=== PATIENT | male | born 1965 | race African-American/Black ===

== ENCOUNTER 2017-02-05 12:20 | Emergency (ER) | payer MEDICAID ==
[~2017-02-05] VITALS: Ht 180.3 cm; Wt 81.6 kg
[2017-02-05 12:29] VITALS: BP 126/84
[2017-02-05] MEDS ORDERED: CYCLOBENZAPRINE10 MG ORAL (12:43)
[2017-02-05] MEDS ORDERED: IBUPROFEN600 MG ORAL (12:43)
--- NOTE | 2017-02-05 12:43 | Emergency Room Report ---
History of Present Illness General Chief Complaint: Back Pain-No Injury Source: Patient Present Illness HPI 51-year-old male presents to the emergency department complaining of 8/10 in severity left-sided low back pain x3 days. Patient states acute onset the day after helping to move bags of powdered concrete. Patient denies previous injury to his back denies nausea, vomiting, fevers, chills denies trauma or fall. Denies recent spinal procedures her history of cancer. Denies numbness tingling or loss of sensation or gross motor movements of the extremities, incontinence of bowel or bladder. Denies CP, Palpitations, LOC, AMS, dizziness, Changes in Vision, Sensation, paresthesias, or a sudden severe headache. Allergies: Coded Allergies: No Known Allergies (Unverified , 02/05/17) Patient History Past Medical History: see triage record Past Surgical History: none Pertinent Family History: none Reviewed Nursing Documentation: PMH: Agreed, PSxH: Agreed Nursing Documentation-PMH Past Medical History: No Stated History Review of Systems All Other Systems: negative except mentioned in HPI Physical Exam Vital Signs Date Time Temp Pulse Resp B/P (MAP) Pulse Ox O2 Delivery O2 Flow Rate FiO2 02/05/17 12:25 97.9 71 20 129/87 99 Room Air Sp02 EP Interpretation: reviewed, normal General Appearance: no apparent distress, alert, GCS 15, non-toxic Head: normocephalic, atraumatic Eyes: bilateral eye normal inspection, bilateral eye PERRL ENT: hearing grossly normal, normal voice Neck: full range of motion, no bony tend, supple/symm/no masses Respiratory: lungs clear, normal breath sounds, speaking full sentences Cardiovascular #1: regular rate, rhythm Rectal: deferred Genitourinary: normal inspection, no CVA tenderness Musculoskeletal: back normal, gait/station normal, normal range of motion, tender - Left lumbar paraspinal ttp, no midline ttp, no swelling, no erythema, no increased temperature to palpation, FROM, Neurologic: alert, oriented x3, responsive, motor strength/tone normal, sensory intact, normal gait, speech normal Psychiatric: judgement/insight normal, memory normal, mood/affect normal Reflexes: 2+ knee (R), 2+ knee (L) Skin: normal color, no rash, warm/dry, well hydrated Medical Decision Making PA Attestation Dr. Roldan is my supervising Physician whom patient management has been discussed with. Diagnostic Impression: Primary Impression: Lumbosacral strain Qualified Codes: S39.012A - Strain of muscle, fascia and tendon of lower back , initial encounter Additional Impression: Acute lumbosacral myofascial strain Qualified Codes: S39.012A - Strain of muscle, fascia and tendon of lower back , initial encounter ER Course 51-year-old male presents to the emergency department complaining of 8/10 in severity left-sided low back pain x3 days. Patient states acute onset the day after helping to move bags of powdered concrete. Patient denies previous injury to his back denies nausea, vomiting, fevers, chills denies trauma or fall. Denies recent spinal procedures her history of cancer. Denies numbness tingling or loss of sensation or gross motor movements of the extremities, incontinence of bowel or bladder. Denies CP, Palpitations, LOC, AMS, dizziness, Changes in Vision, Sensation, paresthesias, or a sudden severe headache. Ddx considered but are not limited to Fracture, dislocation, contusion, epidural abscess, Sprain/Strain/Spasm Vital signs: are WNL, pt. is afebrile H&PE are most consistent with muscle spasm, and acute left sided lumbar strain. ORDERS: none required at this time. ED INTERVENTIONS: none required at this time. DISCHARGE: At this time pt. is stable for d/c to home. Will provide printed patient care instructions, and any necessary prescriptions. Care plan and follow up instructions have been discussed with the patient prior to discharge. Last Vital Signs Date Time Temp Pulse Resp B/P (MAP) Pulse Ox O2 Delivery O2 Flow Rate FiO2 02/05/17 12:29 97.8 73 20 126/84 98 Room Air Disposition: HOME, SELF-CARE Condition: Stable Scripts Ibuprofen* (MOTRIN*) 600 Mg Tablet 600 MG ORAL THREE TIMES A DAY, #30 TAB 0 Refills Prov: Julia Ruth P.A. 02/05/17 Cyclobenzaprine Hcl* (FLEXERIL*) 10 Mg Tablet 10 MG ORAL THREE TIMES A DAY for 7 Days, #21 TAB Prov: Julia Ruth P.A. 02/05/17 Patient Instructions: Muscle Strain Additional Instructions: Take medications as directed. Follow up with a Primary Care Provider in 3-5 days, even if your symptoms have resolved. --Please review list of primary care clinics, if you do not already have a primary care provider Return sooner to ED if new symptoms occur, or current symptoms become worse. Do not drink alcohol, drive, or operate heavy machinery while taking Flexeril as this may cause drowsiness. - Please note that this Emergency Department Report was dictated using [employer] technology software, occasionally this can lead to erroneous entry secondary to interpretation by the dictation equipment. Julia Ruth Feb 05, 2017 12:43
[2017-02-05 12:57] VITALS: BP 126/84
== END 2017-02-05 13:20 | disposition home or self-care (01) ==
LOC: EMR 13:16
DX: S39.012A Strain of muscle, fascia and tendon of lower back, initial encounter (principal); X50.0XXA Overexertion from strenuous movement or load, initial encounter; Y93.9 Activity, unspecified; Y92.9 Unspecified place or not applicable
CPT/HCPCS: 99284

== ENCOUNTER 2017-03-25 06:18 | Emergency (ER) | payer MEDICAID, OTHER ==
[~2017-03-25] VITALS: Ht 177.8 cm; Wt 81.6 kg
[~2017-03-25 06:18] MED LIST: CYCLOBENZAPRINE10 MG ORAL; IBUPROFEN600 MG ORAL
[2017-03-25] MEDS ORDERED: NKM (06:24)
[2017-03-25 06:25] VITALS: BP 131/84
[2017-03-25] MEDS ORDERED: IBUPROFEN600 MG ORAL (06:33)
[2017-03-25 06:56] VITALS: BP 131/84
--- NOTE | 2017-03-25 07:20 | Emergency Room Report ---
History of Present Illness General Chief Complaint: Eye Problems Source: Patient Present Illness HPI 51-year-old male no significant past medical history presenting with 2 days of right eye burning and pain. Patient states that he developed a lump on her right upper eyelid, painful. No trauma. No purulent drainage, no increased tearing. Denies any foreign body, denies sensation of foreign body in the eye, denies any vision loss/blurry vision. Allergies: Coded Allergies: No Known Allergies (Unverified , 02/05/17) Patient History Past Medical History: see triage record Past Surgical History: none Pertinent Family History: none Reviewed Nursing Documentation: PMH: Agreed, PSxH: Agreed Nursing Documentation-PMH Past Medical History: No Stated History Review of Systems All Other Systems: negative except mentioned in HPI Physical Exam Vital Signs Date Time Temp Pulse Resp B/P (MAP) Pulse Ox O2 Delivery O2 Flow Rate FiO2 03/25/17 06:21 97.9 80 14 131/84 97 Room Air Sp02 EP Interpretation: reviewed, normal General Appearance: normal inspection, well appearing, no apparent distress, alert, GCS 15, non-toxic Head: normocephalic, atraumatic Eyes: right eye Scleral Injection, right eye other - Right eye with small hordeolum lateral right upper eyelid, tender to palpation,, left eye normal inspection, bilateral eye PERRL, bilateral eye EOMI ENT: normal ENT inspection, normal pharynx, normal voice, moist mucus membranes Neck: normal inspection, full range of motion, supple Respiratory: normal inspection, lungs clear, normal breath sounds, no respiratory distress, no retraction, no wheezing, speaking full sentences, chest symmetrical Cardiovascular #1: normal inspection, regular rate, rhythm, no edema, normal capillary refill Cardiovascular #2: 2+ radial (R), 2+ radial (L) Gastrointestinal: normal inspection, non tender, soft, non-distended, no guarding Genitourinary: no CVA tenderness Musculoskeletal: normal inspection, back normal, normal range of motion, non- tender Neurologic: normal inspection, alert, oriented x3, responsive, motor strength/ tone normal, sensory intact, normal gait, speech normal Psychiatric: normal inspection, judgement/insight normal, memory normal Skin: normal inspection, normal color, no rash, warm/dry, well hydrated, normal turgor Medical Decision Making Diagnostic Impression: Primary Impression: Hordeolum externum right upper eyelid ER Course 51-year-old male with right sided eye pain, burning DDX: Right eye hordeolum Plan: Motrin ER course: Patient has remained stable during ED stay. Disposition: Patient is to be discharged to home. Prescriptions given are Motrin Patient is instructed to follow up with their primary care doctor within 5 days. Patient instructed to use warm compresses 6 times a day Strict return precautions discussed with patient such as fever, chills, worsening/severe pain, nausea, vomiting, which may indicate severe illness. Patient verbalizes understanding and agrees with plan. Please note that this Emergency Department Report was dictated using [employer] technology software, occasionally this can lead to erroneous entry secondary to interpretation by the dictation equipment Last Vital Signs Date Time Temp Pulse Resp B/P (MAP) Pulse Ox O2 Delivery O2 Flow Rate FiO2 03/25/17 06:56 97.9 14 131/84 97 Room Air 03/25/17 06:21 80 Disposition: HOME, SELF-CARE Condition: Stable Scripts Ibuprofen* (MOTRIN*) 600 Mg Tablet 600 MG ORAL Q8H Y for For Pain, #30 TAB 0 Refills Prov: Myriam Green M.D. 03/25/17 [facility],REFERRING (PCP) Patient Instructions: Myriam Leos M.D. Mar 25, 2017 07:20
== END 2017-03-25 06:55 | disposition home or self-care (01) ==
LOC: EMR 06:33
DX: H00.011 Hordeolum externum right upper eyelid (principal)
CPT/HCPCS: 99283